=== PATIENT | male | born 1955 | race Caucasian/White ===

== ENCOUNTER → 2019-12-21 08:02 | Outpatient (CLI) | payer MEDICARE, SELFPAY ==
--- NOTE | ~2019-12-21 | CT_ITS ---
EXAMINATION: CT abdomen wo/w con DATE: 12/21/2019 08:59 INDICATION: Lesion of adrenal gland. Hypertension. TECHNIQUE: Computed tomography (CT) of the abdomen was performed without and with 100 mL Omnipaque 35 0 intravenous contrast. Automated exposure control and iterative reconstruction technique were employ ed. The dose-length product was 1644.86 mGy-cm. COMPARISON: CT abdomen and pelvis 10/20/2018 FINDINGS: The visualized portions of the lung bases demonstrate mild atelectasis and mild chronic reese g disease. A calcified left lung nodule is consistent with old granulomatous disease. The heart size is normal. No pericardial effusion. There is a small sliding hiatal hernia. The liver, gallbladder, s pleen, pancreas, and right adrenal gland are normal. There is a 1.7 cm mass in left adrenal gland wit h absolute washout of 69% and relative washout of 55%, consistent with an adenoma. There is cortical thinning of the kidneys. There are 8 stones in right kidney measuring up to 4 mm. There are two 1 mm stones in left kidney. There are no dilated loops of bowel. There are no pathologically enlarged lymp h nodes. There is no free intraperitoneal fluid. There is severe lower lumbar spondylosis. There are benign bone islands in L1 and L2 vertebral bodies. IMPRESSION: 1. 1.7 cm left adrenal adenoma, stable from 10/20/2018. 2. Bilateral nonobstructing kidney stones. 3. Small sliding hiatal hernia. Reviewed, dictated and finalized at location A.
--- NOTE | ~2019-12-21 | XR_ITS ---
EXAMINATION: XR abdomen/kub 1V INDICATION: Calcium kidney stone TECHNIQUE: Supine views of the abdomen were obtained on 2 radiographs. COMPARISON: CT from today FINDINGS: A 2 mm stone projects in the upper pole of the left kidney. The right kidney stones identif ied on today's CT examination are not definitely identified. The bowel gas pattern is normal. There i s a moderate volume of colonic stool. IMPRESSION: 1. Left nephrolithiasis. Reviewed, dictated and finalized at location A. IMPRESSION: 1. Left nephrolithiasis.
[2019-12-21 08:33] LABS: Estimated Glomerular Filt Rate > 60
== END ==
PROVIDERS: PCP Family Medicine; Visit Provider Nurse Practitioner Adult Health
DX: N20.0 Calculus of kidney (principal); E27.9 Disorder of adrenal gland, unspecified; D35.02 Benign neoplasm of left adrenal gland; K44.9 Diaphragmatic hernia without obstruction or gangrene
CPT/HCPCS: 74018; 74170; Q9967